=== PATIENT | female | born 1965 | race Caucasian/White ===

== ENCOUNTER 2024-10-30 09:45 | Emergency (ER) | payer OTHER, SELFPAY ==
[2024-10-30 09:55] VITALS: BP 117/74; PULSE 80; RESP 16; TEMP 36.1; O2SAT 98
--- NOTE | 2024-10-30 10:00 | ED_ITS ---
HPI - URI/Sore Throat General Chief Complaint: Upper Respiratory Infection Stated Complaint: cough,hard to breathe,fever,chest/back asthmatic Time Seen by Provider: 10/30/24 10:00 Source: patient Mode of arrival: ambulatory Limitations: no limitations History of Present Illness HPI Narrative: 59-year-old female presents with with complaint of cough, congestion, fevers for 7 day days. Had fever this morning. Took ibuprofen prior to arrival. Patient reports history of asthma. Reports some shortness of breath with exertion. Has been using inhalers and neb machine at home. Took Sudafed for several days to treat congestion but has stopped. Patient concern for pneumonia or bronchitis. Requesting albuterol refill. All systems reviewed and negative except as noted above. Related Data Allergies Allergy/AdvReac Type Severity Reaction Status Date / Time No Known Allergies Allergy Verified 10/30/24 09:48 Review of Systems Review of Systems: CONSTITUTIONAL: Reports fever, chills, or sweats. EYES: Denies visual changes, redness, or discharge. ENT: reports rhinorrhea, congestion. Denies sore throat, or otalgia. CARDIOVASCULAR: Denies chest pain, palpitations, or edema. RESPIRATORY: reports cough and dyspnea with exertion. GASTROINTESTINAL: Denies abdominal pain, nausea, vomiting, or diarrhea. GENITOURINARY: Denies dysuria or hematuria. SKIN: Denies rash or itching. MUSCULOSKELETAL: Denies back pain, joint pain, or myalgia. NEUROLOGIC: Denies headache, numbness, or weakness. PSYCHIATRIC: Denies anxiety or depression. All other systems reviewed are negative, except as documented in HPI. [facility] Past Medical History Medical History (Updated 10/30/24 @ 10:07 by Annita Medina NP) Asthma Anxiety Surgical History Surgical History (Updated 09/29/24 @ 12:40 by Raya Marrero) Previous section Family History Family History (Updated 09/29/24 @ 12:41 by Raya Marrero) Mother Depression Heart disease Hypertension Father Alcoholism Sibling Depression Heart disease Grandparent Asthma Social History Social History (Updated 09/29/24 @ 12:42 by Raya Marrero) Social History: 09/08/24 patient declined SDMS Smoking status: Never smoker Alcohol intake: never Substance use: never Living arrangements: with family Occupation/Education: retired Gender identity (if verbalized by the patient): Female Spiritual care concerns: No Agree to blood products: Yes Comments At time of signature, agree with nursing past medical, surgical, social and family history. There is no relevant family history pertinent to the presenting complaint. Exam Narrative: GENERAL: This is a well-nourished, well-developed patient, Ill-appearing but no acute distress HEAD: normocephalic, atraumatic. EYES: PERRL. Sclera clear/white. Vision is grossly intact. EARS: External ears normal, auditory canals clear and without drainage, TMs normal without perforation. Hearing grossly intact. NOSE: External nose normal with no obvious nasal discharge, nares without redness, no rhinorrhea. THROAT: Mucous membranes moist, posterior pharynx clear. NECK: Neck supple, non-tender without lymphadenopathy, masses or thyromegaly. CARDIOVASCULAR: Regular rate and rhythm without murmurs, gallops, or rubs. RESPIRATORY: coarse crackly to right field otherwise clear. Breath sounds equal bilaterally. No wheezes, rales, or rhonchi. SKIN: warm, Dry, intact with no suspicious lesions or rash, good texture and turgor. NEURO: awake, alert, and oriented to person, place and time. There were no obvious focal neurologic abnormalities. EXTREMITIES: No joint tenderness, effusion, or edema noted. Course Course Level of Care: Express Care Visit Vital Signs Vital signs: Vital Signs Temperature 36.1 C L 10/30/24 09:55 Pulse Rate 80 10/30/24 09:55 Respiratory Rate 16 10/30/24 09:55 Blood Pressure 117/74 10/30/24 09:55 Pulse Oximetry 98 10/30/24 09:55 Oxygen Delivery Room Air 10/30/24 09:55 Temperature 36.1 C L 10/30/24 09:55 Pulse Rate 80 10/30/24 09:55 Respiratory Rate 16 10/30/24 09:55 Blood Pressure 117/74 10/30/24 09:55 Pulse Oximetry 98 10/30/24 09:55 Oxygen Delivery Room Air 10/30/24 09:55 reviewed MDM - URI/Sore Throat MDM Narrative Medical decision making narrative: patient is alert, nontoxic. Has been sick for 7-8 days. History of asthma. Will prescribe antibiotic today due to patient's comorbidities, crackles to right lower lung field. Patient agrees with plan of care. Please be advised this is a medical document. It is intended for [id number] communication. It is written in medical language and may contain unfamiliar abbreviations or verbiage. Medical documents are intended to carry relevant information, facts as evident, and the clinical opinion of the practitioner at the time of the encounter. This report may have been done utilizing a voice recognition system. Attempts have been made to correct errors. However, there may be uncorrected grammatical, spelling, and recognition errors present. The file time of this note does not necessarily represent the time of service. Differential Diagnosis Differential diagnosis: Likely upper respiratory infection, sinusitis, viral infection, bronchitis and influenza Discharge Plan Discharge Clinical Impression: Acute bronchitis, Asthma exacerbation Patient Disposition: Home, Self-Care Condition: Stable Instructions: Antibiotic Form, Acute Bronchitis (ED) Additional Instructions: Take medications as prescribed. Continue using inhalers as prescribed. Take Tylenol or ibuprofen every 6-8 hours as needed for pain and fever. Drink at least 64 oz of water a day. Place cool mist humidifier in bedroom where you sleep. Follow-up with your primary care physician if symptoms are not improving. Patient Language: Faroese Prescriptions: New doxycycline hyclate 100 mg capsule 100 mg PO BID 7 Days Qty: 14 0RF benzonatate 200 mg capsule 200 mg PO TID PRN (Reason: cough) Qty: 20 0RF prednisone 20 mg tablet 40 mg PO DAILY 5 Days Qty: 10 0RF albuterol sulfate 90 mcg/actuation HFA aerosol inhaler 2 puff inhalation Q4-6H PRN (Reason: shortness of breath or wheezing) Qty: 8.5 0RF Follow-up/Referrals: Osiris Yarbrough APRN [Primary Care Provider] - Time of Disposition: 10:07
== END 2024-10-30 10:22 | disposition home or self-care (01) ==
PROVIDERS: Emergency Provider Nurse Practitioner Family; PCP Nurse Practitioner Family
DX: J20.9 Acute bronchitis, unspecified (principal); J45.901 Unspecified asthma with (acute) exacerbation
CPT/HCPCS: 99213; G0463